=== PATIENT | female | born 1955 | race Caucasian/White ===

== ENCOUNTER 2022-07-28 14:31 | Observation (INO) ==
[2022-07-28] MEDS ORDERED: ALBUTEROL/IPRATROPIUM 3 ML NEB RESP TX STA (16:17)
[2022-07-28] MEDS ORDERED: cefTRIAXone 1,000 MG in SODIUM CHLORIDE 0.9% 100 ML IV STA (17:36)
[2022-07-28] MEDS ORDERED: methylPREDNISolone SOD SUC 125 MG/2 ML VIAL IV STA (17:36)
[2022-07-28] MEDS ORDERED: SODIUM CHLORIDE 0.9% 1,000 ML IV STA (17:36)
[2022-07-28 18:03] LABS: Basophils % 0.3 % (0.0-0.8); Eosinophils % 0.3 % (0.00-10.9); Hematocrit 41.8 VOL% (35.7-47.0); Hemoglobin 13.6 GM/DL (12.0-16.0); Immature Granulocytes % 0.6 %; Immature Granulocytes Absolute 0.06 #; Lymphocytes # 1.1 10*3/uL (1.4-4.0); Lymphocytes % 11.1 % (21.3-54.2); Mean Corpuscular HGB Conc 32.5 GM/DL (32-36); Mean Corpuscular Volume 86.2 FL (87-102); Mean Platelet Volume 10.2 FL (9.6-12.0); Monocytes # 0.7 10*3/uL (0.11-0.8); Monocytes % 6.3 % (1.7-12.7); Neutrophils % 81.4 % (38.7-73.9); Platelet Count 243 T/CUMM (130-400); Red Blood Count 4.85 MC/CUMM (3.8-5.5); Red Cell Distribution Width 15.2 % (9.3-17.3); White Blood Count 10.3 T/CUMM (4-12)
[2022-07-28] MEDS ORDERED: ONDANSETRON 4 MG/2 ML VIAL IV STA (18:21)
[2022-07-28] MEDS ORDERED: ONDANSETRON 4 MG/2 ML VIAL ONE (18:23)
[2022-07-28 18:51] LABS: Albumin 3.6 G/DL (3.4-5.0); Bilirubin,Total 0.8 MG/DL (0.20-1.00); Calcium 8.8 MG/DL (8.5-10.1); Potassium 3.7 MMOL/L (3.5-5.1); Total Protein 8.1 G/DL (6.4-8.2)
[2022-07-28] MEDS ORDERED: DOCUSATE SODIUM 100 MG CAPSULE PO PRN (19:25)
[2022-07-28] MEDS ORDERED: ACETAMINOPHEN 325 MG TABLET PO PRN (19:25)
[2022-07-28] MEDS ORDERED: ONDANSETRON 4 MG/2 ML VIAL IV PRN (19:25)
[2022-07-28] MEDS ORDERED: ENOXAPARIN 40 MG/0.4 ML SYRINGE SUBCUT SCH (21:00)
[2022-07-28] MEDS: guaiFENesin/DM ER 600-30 MG TABLET PO SCH (21:25)
[2022-07-28] MEDS: BENZONATATE 100 MG CAPSULE PO SCH (21:25)
[2022-07-28] MEDS: DORNASE ALFA 2.5 MG/2.5 ML VIAL RESP TX SCH (21:35)
[2022-07-28] MEDS ORDERED: LEVOFLOXACIN INJ 750 MG/150 ML PREMIX IV SCH (22:00)
[2022-07-28] MEDS ORDERED: PHENOL 1.4% THROAT SPRAY 177 ML BOTTLE PO PRN (22:20)
[2022-07-28] MEDS ORDERED: ALBUTEROL 2.5 MG/3 ML NEB RESP TX PRN (22:56)
[2022-07-28] MEDS: ALBUTEROL/IPRATROPIUM 3 ML NEB RESP TX SCH (23:15)
[2022-07-28 23:26] LABS: Arterial Base Excess iSTAT -1 MMOL/L (-2.5-2.5); Arterial Bicarbonate iSTAT 23.8 MMOL/L (20-26); Arterial O2 Saturation iSTAT 95 % (95-100); Arterial PCO2 iSTAT 38 MM HG (35-48); Arterial PO2 iSTAT 73 MM HG (80-95); Arterial Total CO2 iSTAT 25 MMO/L (23-27); Arterial pH iSTAT 7.401 (7.35-7.45)
[2022-07-29] MEDS ORDERED: ALBUTEROL 2.5 MG/3 ML NEB RESP TX SCH (01:00)
[2022-07-29] MEDS: ALBUTEROL/IPRATROPIUM 3 ML NEB RESP TX SCH ×3 (04:25→10:30)
[2022-07-29] MEDS ORDERED: methylPREDNISolone SOD SUC 40 MG/1 ML VIAL IV SCH (06:00)
[2022-07-29] MEDS: DORNASE ALFA 2.5 MG/2.5 ML VIAL RESP TX SCH (07:40)
[2022-07-29] MEDS ORDERED: PANTOPRAZOLE 40 MG TABLET PO SCH (09:00)
[2022-07-29 09:08] VITALS: BP 106/56
[2022-07-29] MEDS ORDERED: DULoxetine 30 MG CAPSULE PO SCH (09:30)
[2022-07-29] MEDS ORDERED: PREGABALIN 75 MG CAPSULE PO SCH (09:30)
[2022-07-29] MEDS ORDERED: ATORVASTATIN 40 MG TABLET PO SCH (09:30)
[2022-07-29] MEDS: BENZONATATE 100 MG CAPSULE PO SCH (09:50)
[2022-07-29] MEDS: guaiFENesin/DM ER 600-30 MG TABLET PO SCH (09:50)
[2022-07-30] MEDS ORDERED: predniSONE 20 MG TABLET PO SCH (09:00)
[2022-07-30] MEDS ORDERED: LEVOFLOXACIN 500 MG TABLET PO SCH (09:00)
[2022-07-30] MEDS ORDERED: ZINC GLUCONATE 50 MG TABLET PO SCH (09:00)
== END 2022-07-29 14:33 | disposition home or self-care (01) ==
LOC: N.ED 14:31 → N.EDINP 14:31 → N.ED 20:14 → N.EDINP 20:30 → N.TELEN 21:05
PROVIDERS: ADMIT Hospitalist; ATTEND Hospitalist